=== PATIENT | male | born 1960 | race Caucasian/White ===

== ENCOUNTER 2023-07-22 20:18 | Emergency (ER) | payer OTHER ==
[2023-07-22 21:37] LABS: Influenza A by NAA Not Detected (NotDetected); Influenza B by NAA Not Detected (NotDetected); SARS-CoV-2 NAA Rapid Test Not Detected (NotDetected)
[2023-07-22 21:51] LABS: Troponin I Less than 0.010 ng/mL (< 0.028)
[2023-07-22 21:52] LABS: Potassium 3.9 mmol/L (3.5-5.1); Sodium 134 mmol/L (136-145)
[2023-07-22 21:53] LABS: Carbon Dioxide 19 mmol/L (23-31); Chloride 108 mmol/L (98-107)
[2023-07-22 21:54] LABS: Anion Gap 11 mmol/L (10-20)
[2023-07-22 21:55] LABS: Albumin 2.7 g/dL (3.4-4.8); BUN (Urea Nitrogen) 24 mg/dL (8.4-25.7); Bilirubin, Total Less than 0.2 mg/dL (0.2-1.2); Calc. Creatinine Clearance 0 mL/min (70-130); Calcium 7.2 mg/dL (7.6-10.4); Estimated GFR 102; Globulin 2.4 g/dL (2.4-3.5); Glucose 139 mg/dL (80-115); Protein, Total 5.1 g/dL (5.8-8.1)
[2023-07-22 21:56] LABS: ALT (SGPT) 12 U/L (8-55); AST (SGOT) 10 U/L (5-34); Alkaline Phosphatase 101 U/L (40-110)
[2023-07-22 22:16] LABS: Magnesium 1.9 mg/dL (1.6-2.6)
[2023-07-22 22:19] LABS: Critical Call w/ Read Back NUR.NP2 2100
[2023-07-22 22:20] LABS: Hematocrit 12.8 % (38.8-50.0); Hemoglobin 4.3 g/dL (13.5-17.5); Mean Corpuscular HGB CONC 33.6 g/dL (32.0-36.0); Mean Corpuscular Hemoglobin 38.1 pg (27.0-33.0); Mean Corpuscular Volume 113.3 fl (81.2-95.1); Platelet Count 5 10x3/uL (150-450); RBC Distribution Width 18.6 % (11.5-14.5); Red Blood Cell (RBC) Count 1.13 10x6/uL (4.32-5.72); White Blood Cell (WBC) Count 9.6 10x3/uL (3.5-10.5)
[2023-07-22 22:50] LABS: Macrocytosis MODERATE=16-30 cells (100X) (0-5/hpf); Platelet Adequacy Comment Platelets Decreased
[2023-07-22 22:51] LABS: Reflex for Review?? YES
[2023-07-22 22:52] LABS: #Basophils 0.01 10x3/uL (0.0-0.2); #Eosinphils 0.01 10x3/uL (0.0-0.5); #Monocytes 0.66 10x3/uL (0.0-1.1); #Neutrophils 7.47 10x3/uL (1.5-8.4); %Basophils 0.1 % (0.0-2.0); %Eosinophils 0.1 % (0.0-6.0); %Lymphocytes 14.4 % (18.0-47.0); %Monocytes 6.9 % (0.0-10.0); %Neutrophils 77.9 % (40.0-75.0); Mean Platelet Volume 10.2 fl (7.4-10.4)
[2023-07-22 23:02] LABS: Prothrombin Time 10.9 sec (9.5-12.1)
[2023-07-22 23:14] LABS: PTT Less than 20.0 sec (22.0-33.0)
[2023-07-22 23:23] LABS: Ferritin 169.33 ng/mL (22-322)
[2023-07-22 23:27] LABS: Acetaminophen Less than 10 mcg/mL (10.0-30.0); Alcohol Less than 10.0 mg/dL (Less than 10); Iron 251 ug/dL (65-175); Iron Binding Capacity, Total 219 mcg/dL (261-462); Salicylate Less than 8.0 mg/dL (15.0-30.0)
[2023-07-23 00:33] LABS: Lactic Acid 3.1 mmol/L (0.5-2.2)
[2023-07-23 00:37] LABS: Amphetamine Detected (NotDetected); Barbiturates Screen Detected (NotDetected); Benzodiazepine Screen Not Detected (NotDetected); Cocaine Metabolite Screen Not Detected (NotDetected); Methadone Not Detected (NotDetected); Methamphetamine Detected (NotDetected); Opiate Screen Not Detected (NotDetected); Oxycodone Screen Not Detected (NotDetected); Phencyclidine (PCP) Not Detected (NotDetected); THC/Cannabinoid Screen Not Detected (NotDetected); Tricyclic Screen Not Detected (NotDetected)
== END 2023-07-23 01:27 | disposition short-term general hospital (02) ==
LOC: CSHERS 20:18
DX: D64.9 Anemia, unspecified (principal); E83.51 Hypocalcemia; D69.6 Thrombocytopenia, unspecified; I10 Essential (primary) hypertension; F17.210 Nicotine dependence, cigarettes, uncomplicated; Z79.899 Other long term (current) drug therapy
CPT/HCPCS: 36415; 36430; 71045; 80053; 80306; 80307; 82607; 82728; 83540; 83550; 83605; 83735; 83880; 84484; 85025; 85060; 85610; 85730; 86850; 86900; 86901; 93005; 96361; 96365; 96366; 96368; J0612; P9016

== ENCOUNTER 2023-12-16 09:46 | Outpatient (CLI) | payer OTHER | END 2023-12-16 09:47 | disposition home or self-care (01) | LOC: CSHWCC 09:46 | PROVIDERS: ATTEND Nurse Practitioner Family | DX: I87.311 Chronic venous hypertension (idiopathic) with ulcer of right lower extremity (principal); L97.512 Non-pressure chronic ulcer of other part of right foot with fat layer exposed; G40.909 Epilepsy, unspecified, not intractable, without status epilepticus; D50.9 Iron deficiency anemia, unspecified | CPT/HCPCS: 97605 ==

== ENCOUNTER 2023-12-20 10:49 | Outpatient (CLI) | payer OTHER | END 2023-12-20 10:50 | disposition home or self-care (01) | LOC: CSHWCC 10:49 | PROVIDERS: ATTEND Nurse Practitioner Family | DX: I87.311 Chronic venous hypertension (idiopathic) with ulcer of right lower extremity (principal); L97.512 Non-pressure chronic ulcer of other part of right foot with fat layer exposed; G40.909 Epilepsy, unspecified, not intractable, without status epilepticus; D50.9 Iron deficiency anemia, unspecified | CPT/HCPCS: 11042; 97605 ==

== ENCOUNTER 2023-12-23 11:27 | Outpatient (CLI) | payer OTHER | END 2023-12-23 11:28 | disposition home or self-care (01) | LOC: CSHWCC 11:27 | PROVIDERS: ATTEND Nurse Practitioner Family | DX: I87.311 Chronic venous hypertension (idiopathic) with ulcer of right lower extremity (principal); L97.512 Non-pressure chronic ulcer of other part of right foot with fat layer exposed; G40.909 Epilepsy, unspecified, not intractable, without status epilepticus; D50.9 Iron deficiency anemia, unspecified | CPT/HCPCS: 97605; 99212; G0463 ==

== ENCOUNTER 2023-12-27 10:37 | Outpatient (CLI) | payer OTHER | END 2023-12-27 10:38 | disposition home or self-care (01) | LOC: CSHWCC 10:37 | PROVIDERS: ATTEND Nurse Practitioner Family | DX: I87.311 Chronic venous hypertension (idiopathic) with ulcer of right lower extremity (principal); L97.512 Non-pressure chronic ulcer of other part of right foot with fat layer exposed; G40.909 Epilepsy, unspecified, not intractable, without status epilepticus; D50.9 Iron deficiency anemia, unspecified | CPT/HCPCS: 11042 ==

== ENCOUNTER 2023-12-29 13:01 | Outpatient (CLI) | payer OTHER | END 2023-12-29 13:02 | disposition home or self-care (01) | LOC: CSHWCC 13:01 | PROVIDERS: ATTEND Nurse Practitioner Family | DX: I87.311 Chronic venous hypertension (idiopathic) with ulcer of right lower extremity (principal); L97.512 Non-pressure chronic ulcer of other part of right foot with fat layer exposed; G40.909 Epilepsy, unspecified, not intractable, without status epilepticus; D50.9 Iron deficiency anemia, unspecified | CPT/HCPCS: 29581 ==

== ENCOUNTER 2024-01-03 10:06 | Outpatient (CLI) | payer MEDICARE, OTHER | END 2024-01-03 10:07 | disposition home or self-care (01) | LOC: CSHWCC 10:06 | PROVIDERS: ATTEND Nurse Practitioner Family | DX: I87.311 Chronic venous hypertension (idiopathic) with ulcer of right lower extremity (principal); L97.512 Non-pressure chronic ulcer of other part of right foot with fat layer exposed; G40.909 Epilepsy, unspecified, not intractable, without status epilepticus; D50.9 Iron deficiency anemia, unspecified | CPT/HCPCS: 11042 ==

== ENCOUNTER 2024-01-10 11:27 | Outpatient (CLI) | payer OTHER | END 2024-01-10 11:28 | disposition home or self-care (01) | LOC: CSHWCC 11:27 | PROVIDERS: ATTEND Nurse Practitioner Family | DX: I87.311 Chronic venous hypertension (idiopathic) with ulcer of right lower extremity (principal); L97.512 Non-pressure chronic ulcer of other part of right foot with fat layer exposed; G40.909 Epilepsy, unspecified, not intractable, without status epilepticus; D50.9 Iron deficiency anemia, unspecified | CPT/HCPCS: 17250 ==

== ENCOUNTER 2024-01-17 10:05 | Outpatient (CLI) | payer OTHER | END 2024-01-17 10:06 | disposition home or self-care (01) | LOC: CSHWCC 10:05 | PROVIDERS: ATTEND Nurse Practitioner Family | DX: I87.311 Chronic venous hypertension (idiopathic) with ulcer of right lower extremity (principal); L97.512 Non-pressure chronic ulcer of other part of right foot with fat layer exposed; G40.909 Epilepsy, unspecified, not intractable, without status epilepticus; D50.9 Iron deficiency anemia, unspecified | CPT/HCPCS: 11042 ==

== ENCOUNTER 2024-01-24 10:53 | Outpatient (CLI) | payer OTHER, MEDICARE | END 2024-01-24 10:54 | disposition home or self-care (01) | LOC: CSHWCC 10:53 | PROVIDERS: ATTEND Nurse Practitioner Family | DX: I87.311 Chronic venous hypertension (idiopathic) with ulcer of right lower extremity (principal); L97.512 Non-pressure chronic ulcer of other part of right foot with fat layer exposed; G40.909 Epilepsy, unspecified, not intractable, without status epilepticus; D50.9 Iron deficiency anemia, unspecified | CPT/HCPCS: 11042; 99212; G0463 ==

== ENCOUNTER 2024-01-31 10:58 | Outpatient (CLI) | payer OTHER, MEDICARE | END 2024-01-31 10:59 | disposition home or self-care (01) | LOC: CSHWCC 10:58 | PROVIDERS: ATTEND Nurse Practitioner Family | DX: I87.311 Chronic venous hypertension (idiopathic) with ulcer of right lower extremity (principal); L97.512 Non-pressure chronic ulcer of other part of right foot with fat layer exposed; G40.909 Epilepsy, unspecified, not intractable, without status epilepticus; D50.9 Iron deficiency anemia, unspecified | CPT/HCPCS: 99212; G0463 ==

== ENCOUNTER 2024-02-14 09:49 | Outpatient (CLI) | payer OTHER, MEDICARE | END 2024-02-14 09:50 | disposition home or self-care (01) | LOC: CSHWCC 09:49 | PROVIDERS: ATTEND Nurse Practitioner Family | DX: G40.909 Epilepsy, unspecified, not intractable, without status epilepticus (principal); D50.9 Iron deficiency anemia, unspecified; Z87.2 Personal history of diseases of the skin and subcutaneous tissue | CPT/HCPCS: 99212; G0463 ==